=== PATIENT | male | born 1960 | race Caucasian/White ===

== ENCOUNTER 2016-10-18 16:06 | Emergency (ER) | payer SELFPAY ==
--- NOTE | 2016-10-18 16:22 | EDM.PDOC ---
ED HPI GENERAL MEDICAL PROBLEM - General Chief Complaint: Upper Extremity Injury/Pain Stated Complaint: amputation of left middle finger at PIP Time Seen by Provider: 10/18/16 16:06 Source of Information: Reports: Patient History Limitations: Reports: No Limitations - History of Present Illness Onset: Today Onset Date: 10/18/16 Duration: Constant Location: Reports: Upper Extremity, Left Quality: Reports: Dull Severity: Moderate Improves with: Reports: None Worsens with: Reports: None ED ROS GENERAL - Review of Systems Review Of Systems: ROS reveals no pertinent complaints other than HPI. ED EXAM, GENERAL - Physical Exam Exam: See Below Exam Limited By: No Limitations General Appearance: Alert, Anxious Nose: Normal Inspection Throat/Mouth: Normal Inspection Head: Atraumatic, Normocephalic Neck: Normal Inspection Respiratory/Chest: No Respiratory Distress, Lungs Clear, Normal Breath Sounds Cardiovascular: Regular Rate, Rhythm GI/Abdominal: Normal Bowel Sounds, Soft Extremities: Other (left hand, PIP amputation; bleeding controlled) Neurological: Alert, Oriented, Normal Cognition Skin Exam: Warm, Dry Course - Orders/Labs/Meds Orders: Active Orders 24 hr Category Date Time Status Vaccines to be Administered [RC] PER UNIT ROUTINE Care 10/18/16 16:30 Ordered Fingers Third Digit Lt F2 [CR] Stat Exams 10/18/16 16:29 Ordered Hand 2V Lt [CR] Stat Exams 10/18/16 16:28 Ordered Sodium Chloride 0.9% @ 75 MLS/HR(1000ml) Med 10/18/16 16:45 Ordered Sodium Chloride 0.9% [Normal Saline] 1,000 ml IV ASDIRECTED Medication Orders Sodium Chloride (Normal Saline) 1,000 mls @ 75 mls/hr IV ASDIRECTED SHIRA Meds: Medications Generic Name Dose Route Start Last Admin Trade Name Freq PRN Reason Stop Dose Admin Sodium Chloride 1,000 mls @ 75 mls/hr 10/18/16 16:45 Normal Saline IV ASDIRECTED SHIRA Discontinued Medications Generic Name Dose Route Start Last Admin Trade Name Freq PRN Reason Stop Dose Admin Cefazolin Sodium 1 gm/ Sodium 50 mls @ 200 mls/hr 10/18/16 16:29 Chloride IV 10/18/16 16:43 ONETIME ONE Morphine Sulfate 5 mg 10/18/16 16:53 Morphine IVPUSH 10/18/16 16:54 ONETIME ONE Tetanus/Diphtheria Toxoids 0.5 ml 10/18/16 16:30 Tenivac IM 10/18/16 16:31 .ONCE ONE - Re-Assessments/Exams Free Text/Narrative Re-Assessment/Exam: 10/18/16 16:43 Spoke with Andrae Ceja and they states he is not a candidate for reattachment (because of single finger) Spoke with Dr. Johnson, out of [place]; hand specialist; Dr. Anguiano is aware of his situation and Er will be awaiting him. Patient is coming by POV. Spoke with Dr. Payton. He has accepted this patient. Free Text/Narrative Re-Assessment/Exam: 10/18/16 16:58 Given 5 mg of Morphine just prior to arrival. Free Text/Narrative Re-Assessment/Exam: 10/18/16 16:58 Did sign AMA for transportation. Departure - Departure Time of Disposition: 18:00 Disposition: DC/Tfer to Other 70 Condition: Fair Clinical Impression: Amputation finger - Discharge Information Referrals: PCP,None [Primary Care Provider] - Forms: ED Department Discharge - Problem List & Annotations (1) Amputation finger SNOMED Code(s): 249283933 Code(s): S68.119A - COMPLETE TRAUMATIC MCP AMPUTATION OF UNSP FINGER, INIT Status: Acute Priority: Medium Current Visit: Yes Qualifiers: Encounter type: initial encounter Qualified Code(s): S68.119A - Complete traumatic metacarpophalangeal amputation of unspecified finger, initial encounter - Problem List Review Problem List Initiated/Reviewed/Updated: Yes - My Orders Last 24 Hours: My Active Orders 10/18/16 16:28 Hand 2V Lt [CR] Stat 10/18/16 16:29 Fingers Third Digit Lt F2 [CR] Stat 10/18/16 16:30 Vaccines to be Administered [RC] PER UNIT ROUTINE 10/18/16 16:45 Sodium Chloride 0.9% @ 75 MLS/HR(1000ml) Sodium Chloride 0.9% [Normal Saline] 1 ,000 ml IV ASDIRECTED - Assessment/Plan Last 24 Hours: My Active Orders 10/18/16 16:28 Hand 2V Lt [CR] Stat 10/18/16 16:29 Fingers Third Digit Lt F2 [CR] Stat 10/18/16 16:30 Vaccines to be Administered [RC] PER UNIT ROUTINE 10/18/16 16:45 Sodium Chloride 0.9% @ 75 MLS/HR(1000ml) Sodium Chloride 0.9% [Normal Saline] 1 ,000 ml IV ASDIRECTED Plan: He refuses ambulance He will go to ER; Dr. Payton is accepting; Dr. Wilson Knows of his arrival.
[2016-10-18] MEDS ORDERED: ceFAZolin 1 GM in Sodium Chloride 0.9% 50 ML IV ONE (16:29)
[2016-10-18] MEDS ORDERED: Diphtheria/Tetanus Toxoids,Adult (Td) 0.5 ML SDV IM ONE (16:30)
[2016-10-18] MEDS ORDERED: Sodium Chloride 0.9% 1,000 ML IV SCH (16:45)
[2016-10-18] MEDS ORDERED: Morphine 10 MG/ML Syringe IVPUSH ONE (16:53)
[2016-10-18] MEDS ORDERED: Ondansetron 4 MG Tab.DIS PO ONE (17:03)
[2016-10-18] MEDS ORDERED: Ondansetron 4 MG Tab.DIS ONE (17:10)
[2016-10-18] MEDS ORDERED: Morphine 10 MG/ML Syringe ONE (17:10)
[2016-10-18] MEDS ORDERED: Diphtheria,Pertussis(Acell),Tetanus Vaccine 0.5 ML SDV inactive IM ONE (18:06)
--- NOTE | 2016-10-18 22:51 | CR ---
DATE OF SERVICE: 10/18/2016 CLINICAL DATA: Amputation. LEFT 3RD DIGIT The patient is status post partial amputation of the finger with amputation of the distal phalanx and a portion of the head of the middle phalanx. No other acute abnormalities. [id number] MTDD
--- NOTE | 2016-10-18 22:53 | CR ---
DATE OF SERVICE: 10/18/2016 CLINICAL DATA: Amputation. LEFT HAND Again noted is the partial amputation of the 3rd digit. No other acute abnormalities. [id number] [facility]
== END 2016-10-18 17:15 | disposition other institution (70) ==
LOC: LB.ED 16:06
DX: S68.113A Complete traumatic metacarpophalangeal amputation of left middle finger, initial encounter (principal); X58.XXXA Exposure to other specified factors, initial encounter
CPT/HCPCS: 73120; 73140; 90471; 90715; 96361; 96374; 96375; 99284; A9270; J0690; J2270; J7040; J7050